=== PATIENT | female | born 1970 | race Caucasian/White ===

== ENCOUNTER 2018-10-02 06:46 | Emergency (ER) | payer BC, OTHER ==
[~2018-10-02] VITALS: Ht 147.3 cm; Wt 72.6 kg
[2018-10-02] MEDS ORDERED: ONDANSETRON ODT8 MG PO (09:45)
== END 2018-10-02 10:15 | disposition home or self-care (01) ==
LOC: ED 06:46
DX: K52.9 Noninfective gastroenteritis and colitis, unspecified (principal); R51 Headache; Z87.891 Personal history of nicotine dependence; Z88.5 Allergy status to narcotic agent; Z88.1 Allergy status to other antibiotic agents
CPT/HCPCS: 36415; 80053; 85025; 87502; 96361; 96374; 96375; 99284-25; J1170; J1885; J2550; J7030